=== PATIENT | male | born 1965 | race Caucasian/White ===

== ENCOUNTER → 2016-07-28 | Outpatient (CLI) | payer BC ==
[~2016-07-28] MED LIST: ASPIRIN CHEWABL81 MG PO; BRILINTA90 MG PO; CETIRIZINE HCL10 M1 PO; DYMISTA NASAL S23 GM; LEVAQUIN500 MG PO; LEVOFLOXACIN750 MG PO; LIPITOR TAB 2020 MG PO; LISINOPRIL10 MG PO; METOPROLOL TART25 MG PO; NORCO 5-325 TA1 EACH PO; SINGULAIR10 MG PO; SPIRIVA18 MCG INH; SYMBICORT 16010.2 GM INH
== END ==
LOC: CT 12:51
DX: J32.9 Chronic sinusitis, unspecified (principal); J01.00 Acute maxillary sinusitis, unspecified; M79.89 Other specified soft tissue disorders; J34.2 Deviated nasal septum
CPT/HCPCS: 70486

== ENCOUNTER → 2016-09-16 | Outpatient (CLI) | payer BC ==
[2016-09-16 08:39] LABS: HEMOGLOBIN 14.3 gm/dl (14.0-17.5); RED BLOOD COUNT 4.77 M/UL (4.20-5.50); WHITE BLOOD COUNT 8.8 K/UL (4.5-11.0)
[2016-09-16 08:52] LABS: BUN/CREATININE RATIO 29 (0-10)
== END ==
LOC: OPSV2 07:41
PROVIDERS: Anesthesiology
DX: Z01.810 Encounter for preprocedural cardiovascular examination (principal); Z01.812 Encounter for preprocedural laboratory examination; J32.9 Chronic sinusitis, unspecified; J34.3 Hypertrophy of nasal turbinates; J32.4 Chronic pansinusitis; J30.9 Allergic rhinitis, unspecified; R09.81 Nasal congestion; R09.82 Postnasal drip
CPT/HCPCS: 36415; 80048; 85025; 93005

== ENCOUNTER → 2016-09-19 | Day surgery (SDC) | payer BC ==
[~2016-09-19] VITALS: Ht 175.3 cm; Wt 109.8 kg
== END | disposition home or self-care (01) ==
LOC: OR 05:52
PROVIDERS: Otolaryngology
PROC: 099Q4ZZ Drainage of Right Maxillary Sinus, Percutaneous Endoscopic Approach (ICD-10-PCS; 2016-09-19)
PROC: 09TX4ZZ Resection of Left Sphenoid Sinus, Percutaneous Endoscopic Approach (ICD-10-PCS; 2016-09-19)
PROC: 09TW4ZZ Resection of Right Sphenoid Sinus, Percutaneous Endoscopic Approach (ICD-10-PCS; 2016-09-19)
PROC: 095L8ZZ Destruction of Nasal Turbinate, Via Natural or Artificial Opening Endoscopic (ICD-10-PCS; 2016-09-19)
PROC: 09SM0ZZ Reposition Nasal Septum, Open Approach (ICD-10-PCS; principal; 2016-09-19 09:45)
PROC: 0NTF0ZZ Resection of Right Ethmoid Bone, Open Approach (ICD-10-PCS; 2016-09-19 09:45)
PROC: 0NTG0ZZ Resection of Left Ethmoid Bone, Open Approach (ICD-10-PCS; 2016-09-19 09:45)
PROC: 099R4ZZ Drainage of Left Maxillary Sinus, Percutaneous Endoscopic Approach (ICD-10-PCS; 2016-09-19 09:45)
DX: J32.9 Chronic sinusitis, unspecified (principal); J34.2 Deviated nasal septum; J34.3 Hypertrophy of nasal turbinates; G47.33 Obstructive sleep apnea (adult) (pediatric); E78.00 Pure hypercholesterolemia, unspecified; I10 Essential (primary) hypertension; I25.2 Old myocardial infarction; H69.91 Unspecified Eustachian tube disorder, right ear; I25.119 Atherosclerotic heart disease of native coronary artery with unspecified angina pectoris; F17.220 Nicotine dependence, chewing tobacco, uncomplicated; Z79.82 Long term (current) use of aspirin; Z79.899 Other long term (current) drug therapy
CPT/HCPCS: 87070; 87205; C1726; J0171; J1100; J1956; J2250; J2405; J2710; J3010; J7120

== ENCOUNTER → 2020-04-29 | Outpatient (CLI) | payer BC ==
[~2020-04-29] MED LIST changes: +ATORVASTATIN CA20 MG PO; +AUGMENTIN 875-1 EACH PO; +CETIRIZINE HCL10 MG PO; +CLOPIDOGREL75 MG PO; +ECOTRIN81 MG PO; +ELIQUIS 5 MG TAB5 MG PO; +ISOSORBIDE MONO30 MG PO; +LISINOPRIL30 MG PO; +LISINOPRIL5 MG PO; +LOPRESSOR 25 MG25 MG PO; +MONTELUKAST SOD10 MG PO; +NITROGLYCERIN0.4 MG SL; +PEPCID40 MG PO; +ZYRTEC10 MG PO
== END ==
LOC: HEART 5 04-28 13:00
DX: I48.91 Unspecified atrial fibrillation (principal); R94.39 Abnormal result of other cardiovascular function study
CPT/HCPCS: 78452; A9502

== ENCOUNTER → 2020-05-07 | Outpatient (CLI) | payer BC | LOC: ECHO 11:41 → HEART 5 05-21 09:30 | DX: I48.91 Unspecified atrial fibrillation (principal); I25.10 Atherosclerotic heart disease of native coronary artery without angina pectoris; I34.0 Nonrheumatic mitral (valve) insufficiency; I07.1 Rheumatic tricuspid insufficiency | CPT/HCPCS: ECHO; 93306 ==

== ENCOUNTER → 2020-07-29 | Outpatient (CLI) | payer BC ==
[2020-07-29 08:17] LABS: HEMOGLOBIN 14.4 gm/dl (14.0-17.5); RED BLOOD COUNT 5.08 M/UL (4.20-5.50); WHITE BLOOD COUNT 5.9 K/UL (4.5-11.0)
[2020-07-29 08:41] LABS: BUN/CREATININE RATIO 25 (0-10)
== END | disposition home or self-care (01) ==
LOC: CATH 07:28
PROVIDERS: Internal Medicine Cardiovascular Disease
DX: I25.118 Atherosclerotic heart disease of native coronary artery with other forms of angina pectoris (principal); I10 Essential (primary) hypertension; E78.5 Hyperlipidemia, unspecified; I48.91 Unspecified atrial fibrillation; Z88.8 Allergy status to other drugs, medicaments and biological substances; Z79.01 Long term (current) use of anticoagulants
CPT/HCPCS: 36415; 71045; 80048; 85025; 85347; 85610; 93005; 93571; 99152; 99153; C1769; C1887; C1894; J0153; J1644; J3010; J7030; Q9967

== ENCOUNTER 2020-08-01 23:08 | Emergency (ER) | payer BC ==
[2020-08-01 23:31] LABS: HEMOGLOBIN 15.4 gm/dl (14.0-17.5); RED BLOOD COUNT 4.94 M/UL (4.20-5.50); WHITE BLOOD COUNT 8.2 K/UL (4.5-11.0)
[2020-08-01 23:56] LABS: BUN/CREATININE RATIO 19 (0-10)
== END 2020-08-02 03:39 | disposition home or self-care (01) ==
LOC: ER1 23:08
PROVIDERS: Emergency Medicine
DX: R07.9 Chest pain, unspecified (principal); I10 Essential (primary) hypertension; I25.10 Atherosclerotic heart disease of native coronary artery without angina pectoris; I48.91 Unspecified atrial fibrillation; Z88.8 Allergy status to other drugs, medicaments and biological substances
CPT/HCPCS: 71045; 80053; 82550; 82553; 83690; 83735; 83874; 83880; 84100; 84484; 85025; 85379; 85610; 85730; 93005; 99285

== ENCOUNTER → 2020-08-11 | Outpatient (CLI) | payer BC | LOC: HEART 5 08-07 08:30 | DX: R00.2 Palpitations (principal) ==

== ENCOUNTER → 2020-11-16 | Outpatient (CLI) | payer BC | LOC: EXRD 15:23 | DX: M25.511 Pain in right shoulder (principal) | CPT/HCPCS: 73030 ==

== ENCOUNTER → 2021-05-05 | Outpatient (CLI) | payer BC | LOC: HEART 5 10:00 | DX: I48.91 Unspecified atrial fibrillation (principal) ==